=== PATIENT | male | born 1940 | race African-American/Black ===

== ENCOUNTER 2017-03-20 21:59 | Inpatient (IN) | payer MEDICARE, OTHER ==
[~2017-03-20] VITALS: Ht 177.8 cm; Wt 64.0 kg
[2017-03-20] MEDS ORDERED: SODIUM CHLORIDE 0.9% 1,000 ML IV ONE (22:33)
[2017-03-20 23:13] LABS: BASOPHILS % 0.3 % (0.0-2.0); EOSINOPHILS % 0.9 % (0.0-5.0); HEMATOCRIT. 38.2 % (42.0-52.0); HEMOGLOBIN. 12.7 g/dL (14.0-18.0); MEAN CORPUSCULAR HEMOGLOBIN 28.3 pg (28.0-32.0); MEAN CORPUSCULAR VOLUME 85.4 fL (80.0-94.0); MEAN PLATELET VOLUME 8.3 fl (7.4-10.4); NEUTROPHILS % 70.8 % (40.0-76.0); PLATELET 370 x1000/uL (130-400); RED BLOOD CELL COUNT 4.48 mill/uL (4.7-6.1); RED CELL DISTRIBUTION WIDTH 13.9 % (11.6-14.6)
[2017-03-20 23:19] LABS: INR 1.1; PROTHROMBIN TIME 11.8 sec
[2017-03-20 23:27] LABS: CARBON DIOXIDE 27 mEq/L (21-32); CHLORIDE 108 mEq/L (98-107); TROPONIN I 0.04 ng/mL (0.00-0.04)
[2017-03-21] MEDS ORDERED: ABIR250T PO (00:37)
[2017-03-21] MEDS ORDERED: LEVOFLOXACIN 750MG PREMIX 150 ML IV ONE (00:45)
[2017-03-21 01:11] LABS: CLARITY URINE CLEAR (CLEAR); COLOR URINE YELLOW (YELLOW); GLUCOSE URINE NEGATIVE (NEGATIVE); KETONES URINE NEGATIVE (NEGATIVE); LEUKOCYTE ESTERASE URINE NEGATIVE (NEGATIVE); NITRITE URINE NEGATIVE (NEGATIVE); OCCULT BLOOD URINE NEGATIVE (NEGATIVE); PH URINE 8.5 (4.5-8.0); PROTEIN URINE 2+ (NEGATIVE); SPECIFIC GRAVITY URINE 1.016 (1.005-1.030)
[2017-03-21 04:10] VITALS: BP 133/82
[2017-03-21 04:30] VITALS: BP 120/72
[2017-03-21 08:00] VITALS: BP 117/85
[2017-03-21 09:15] LABS: CREATINE KINASE MB FRACTION 2.2 ng/mL (0.5-3.6); TROPONIN I 0.05 ng/mL (0.00-0.04)
[2017-03-21] MEDS ORDERED: AMLO2.5T45 PO (09:16)
[2017-03-21] MEDS ORDERED: CARV6.2548 PO (09:16)
[2017-03-21] MEDS ORDERED: CHOL100026 PO (09:16)
[2017-03-21] MEDS ORDERED: NA PHOS,M-B/NA PHOS,DI-BA ENEMA 118ML PR PRN (11:30)
[2017-03-21] MEDS ORDERED: GUAIFENESIN 200MG/10ML SUGAR FREE UDC PO PRN (11:30)
[2017-03-21] MEDS ORDERED: HYDROCODONE/ACETAMINOPHEN 5/325MG TABLET PO PRN (11:30)
[2017-03-21] MEDS ORDERED: DIPHENHYDRAMINE 50MG/ML VIAL IV PRN (11:30)
[2017-03-21] MEDS ORDERED: DOCUSATE SODIUM 100MG CAPSULE PO PRN (11:30)
[2017-03-21] MEDS ORDERED: MAGNESIUM/ALUMINUM HYDROXIDE/SIMETHICONE 30ML UDC PO PRN (11:30)
[2017-03-21] MEDS ORDERED: ONDANSETRON HCL 4MG/2ML VIAL IV PRN (11:30)
[2017-03-21] MEDS ORDERED: IPRATROPIUM/ALBUTEROL 0.5-3(2.5)MG/3ML NEB INH PRN (11:30)
[2017-03-21] MEDS ORDERED: ACETAMINOPHEN 650MG SUPP PR PRN (11:30)
[2017-03-21] MEDS ORDERED: IBUPROFEN 200MG TABLET PO PRN (11:45)
[2017-03-21 12:00] VITALS: BP 137/79
[2017-03-21] MEDS: SODIUM CHLORIDE 0.9% INJ 3ML FLUSH IVF SCH ×2 (13:16→21:01)
[2017-03-21] MEDS: ENOXAPARIN 40MG/0.4ML SYR SUBCUT SCH (13:16)
[2017-03-21 15:00] LABS: BASOPHILS % 0.2 % (0.0-2.0); EOSINOPHILS % 0.5 % (0.0-5.0); HEMATOCRIT. 34.9 % (42.0-52.0); HEMOGLOBIN. 11.6 g/dL (14.0-18.0); LYMPHOCYTES % 18.6 % (20.0-50.0); MEAN CORPUSCULAR HEMOGLOBIN 28.3 pg (28.0-32.0); MEAN CORPUSCULAR VOLUME 85.2 fL (80.0-94.0); MEAN PLATELET VOLUME 7.7 fl (7.4-10.4); MONOCYTES % 10.8 % (2.0-8.0); NEUTROPHILS % 69.9 % (40.0-76.0); PLATELET 333 x1000/uL (130-400); RED BLOOD CELL COUNT 4.09 mill/uL (4.7-6.1); RED CELL DISTRIBUTION WIDTH 14.1 % (11.6-14.6)
[2017-03-21 15:28] LABS: CARBON DIOXIDE 25 mEq/L (21-32); CHLORIDE 109 mEq/L (98-107); CREATINE KINASE 131 IU/L (39-308); CREATINE KINASE MB FRACTION 2.1 ng/mL (0.5-3.6); TROPONIN I 0.04 ng/mL (0.00-0.04)
[2017-03-21 15:29] LABS: CARBON DIOXIDE 24 mEq/L (21-32); CHLORIDE 108 mEq/L (98-107); HDL CHOLESTEROL 41 mg/dL (40-59); LDL CHOLESTEROL 20 mg/dL (5-100); PHOSPHORUS 1.4 mg/dL (2.5-4.9)
[2017-03-21 15:48] LABS: FOLIC ACID (FOLATE) SERUM 12.5 ng/mL (>5.38)
[2017-03-21 16:00] VITALS: BP 115/68
[2017-03-21] MEDS: SODIUM CHLORIDE 0.9% 1,000 ML IV SCH (16:23)
[2017-03-21] MEDS: CEFEPIME 1,000 MG in DEXTROSE 5% WATER 50 ML IV SCH (17:57)
[2017-03-21 20:00] VITALS: BP 134/81
[2017-03-21] MEDS ORDERED: POTASSIUM CHLORIDE 20MEQ TABLET SR PO NR (21:10)
[2017-03-21] MEDS ORDERED: LEVOFLOXACIN 500MG PREMIX 100 ML IV SCH (23:00)
[2017-03-22] VITALS: BP 129/82
[2017-03-22] MEDS: IPRATROPIUM/ALBUTEROL 0.5-3(2.5)MG/3ML NEB HHN SCH ×6 (00:40→21:14)
[2017-03-22 04:00] VITALS: BP 133/77
[2017-03-22] MEDS: SODIUM CHLORIDE 0.9% 1,000 ML IV SCH (05:11)
[2017-03-22] MEDS: SODIUM CHLORIDE 0.9% INJ 3ML FLUSH IVF SCH ×3 (05:11→22:20)
[2017-03-22] MEDS: CEFEPIME 1,000 MG in DEXTROSE 5% WATER 50 ML IV SCH ×2 (05:11→18:49)
[2017-03-22 06:42] LABS: CARBON DIOXIDE 21 mEq/L (21-32); CHLORIDE 112 mEq/L (98-107); HDL CHOLESTEROL 36 mg/dL (40-59); LDL CHOLESTEROL 15 mg/dL (5-100)
[2017-03-22 06:48] LABS: BASOPHILS % 0.1 % (0.0-2.0); HEMATOCRIT. 37.3 % (42.0-52.0); HEMOGLOBIN. 12.1 g/dL (14.0-18.0); LYMPHOCYTES % 9.7 % (20.0-50.0); MEAN CORPUSCULAR VOLUME 86.4 fL (80.0-94.0); MEAN PLATELET VOLUME 8.3 fl (7.4-10.4); MONOCYTES % 11.2 % (2.0-8.0); PLATELET 315 x1000/uL (130-400); RED BLOOD CELL COUNT 4.32 mill/uL (4.7-6.1); RED CELL DISTRIBUTION WIDTH 14.2 % (11.6-14.6)
[2017-03-22 08:00] VITALS: BP 149/91
[2017-03-22 08:29] LABS: AMMONIA 23 uMol/L (<32)
[2017-03-22 12:00] VITALS: BP 129/92
[2017-03-22] MEDS: ENOXAPARIN 40MG/0.4ML SYR SUBCUT SCH (13:00)
[2017-03-22 16:00] VITALS: BP 138/93
[2017-03-22 20:00] VITALS: BP 125/77
[2017-03-22] MEDS: AZITHROMYCIN 500 MG in DEXT 5% WATER 250 ML IV SCH (20:25)
[2017-03-22] MEDS: ACETAMINOPHEN 325MG TABLET PO PRN (20:28)
[2017-03-23] VITALS: BP 117/76
[2017-03-23] MEDS: IPRATROPIUM/ALBUTEROL 0.5-3(2.5)MG/3ML NEB HHN SCH ×6 (00:26→20:50)
[2017-03-23 04:00] VITALS: BP 116/75
[2017-03-23] MEDS: CEFEPIME 1,000 MG in DEXTROSE 5% WATER 50 ML IV SCH ×2 (05:35→18:47)
[2017-03-23] MEDS: SODIUM CHLORIDE 0.9% INJ 3ML FLUSH IVF SCH ×3 (05:35→22:22)
[2017-03-23] MEDS: ACETAMINOPHEN 325MG TABLET PO PRN (06:38)
[2017-03-23 08:00] VITALS: BP 120/84
[2017-03-23 12:00] VITALS: BP 105/72
[2017-03-23] MEDS: ENOXAPARIN 40MG/0.4ML SYR SUBCUT SCH (13:00)
[2017-03-23 16:00] VITALS: BP 108/73
[2017-03-23 20:00] VITALS: BP 119/76
[2017-03-23] MEDS: AZITHROMYCIN 500 MG in DEXT 5% WATER 250 ML IV SCH (20:46)
[2017-03-23 21:58] LABS: CARBON DIOXIDE 26 mEq/L (21-32); CHLORIDE 109 mEq/L (98-107)
[2017-03-23 23:09] LABS: BASOPHILS % 0.2 % (0.0-2.0); HEMATOCRIT. 36.3 % (42.0-52.0); HEMOGLOBIN. 12.1 g/dL (14.0-18.0); LYMPHOCYTES % 12.3 % (20.0-50.0); MEAN CORPUSCULAR HEMOGLOBIN 28.8 pg (28.0-32.0); MEAN CORPUSCULAR VOLUME 86.2 fL (80.0-94.0); MONOCYTES % 6.6 % (2.0-8.0); NEUTROPHILS % 80.9 % (40.0-76.0); RED BLOOD CELL COUNT 4.22 mill/uL (4.7-6.1); RED CELL DISTRIBUTION WIDTH 14.4 % (11.6-14.6)
[2017-03-24] VITALS (7 sets, daily range): BP systolic 99–149; BP diastolic 55–95
[2017-03-24] MEDS: ACETAMINOPHEN 325MG TABLET PO PRN (00:21)
[2017-03-24] MEDS: IPRATROPIUM/ALBUTEROL 0.5-3(2.5)MG/3ML NEB HHN SCH ×6 (01:11→21:08)
[2017-03-24] MEDS: SODIUM CHLORIDE 0.9% INJ 3ML FLUSH IVF SCH ×3 (05:39→21:14)
[2017-03-24] MEDS: CEFEPIME 1,000 MG in DEXTROSE 5% WATER 50 ML IV SCH ×2 (05:39→17:32)
[2017-03-24] MEDS: ENOXAPARIN 40MG/0.4ML SYR SUBCUT SCH (13:00)
[2017-03-24 13:09] LABS: BASOPHILS % 0.1 % (0.0-2.0); EOSINOPHILS % 0.7 % (0.0-5.0); HEMOGLOBIN. 11.3 g/dL (14.0-18.0); LYMPHOCYTES % 11.9 % (20.0-50.0); MEAN CORPUSCULAR HEMOGLOBIN 28.4 pg (28.0-32.0); MEAN CORPUSCULAR VOLUME 85.6 fL (80.0-94.0); MEAN PLATELET VOLUME 8.2 fl (7.4-10.4); MONOCYTES % 6.9 % (2.0-8.0); NEUTROPHILS % 80.4 % (40.0-76.0); PLATELET 257 x1000/uL (130-400); RED BLOOD CELL COUNT 3.97 mill/uL (4.7-6.1); RED CELL DISTRIBUTION WIDTH 14.3 % (11.6-14.6)
[2017-03-24 13:22] LABS: CARBON DIOXIDE 27 mEq/L (21-32); CHLORIDE 109 mEq/L (98-107)
[2017-03-24] MEDS ORDERED: SODIUM CHLORIDE 10% FOR INH 15ML VIAL NEB INH NR (20:30)
[2017-03-24] MEDS: AZITHROMYCIN 500 MG in DEXT 5% WATER 250 ML IV SCH (21:14)
[2017-03-24] MEDS: ACETAMINOPHEN 650MG/20.3ML UDC GT PRN (23:11)
[2017-03-25] VITALS (10 sets, daily range): BP systolic 105–148; BP diastolic 65–106
[2017-03-25] MEDS: IPRATROPIUM/ALBUTEROL 0.5-3(2.5)MG/3ML NEB HHN SCH ×6 (00:58→20:02)
[2017-03-25] MEDS: SODIUM CHLORIDE 0.9% INJ 3ML FLUSH IVF SCH ×3 (05:59→21:04)
[2017-03-25] MEDS: CEFEPIME 1,000 MG in DEXTROSE 5% WATER 50 ML IV SCH ×2 (06:00→19:03)
[2017-03-25] MEDS: CLONIDINE 0.1MG TABLET PO PRN (11:41)
[2017-03-25] MEDS ORDERED: PRED2.5T4 PO (14:56)
[2017-03-25] MEDS ORDERED: DORZ10DR7 EACHEYE (14:56)
[2017-03-25] MEDS ORDERED: BRIM15DR2 EACHEYE (14:56)
[2017-03-25] MEDS: ENOXAPARIN 40MG/0.4ML SYR SUBCUT SCH (15:29)
[2017-03-25] MEDS ORDERED: MEDICATION NOT ON FORMULARY EA (Prednisone 1 TAB) PO SCH (17:00)
[2017-03-25] MEDS ORDERED: MEDICATION NOT ON FORMULARY EA (Brimonidine Tartrate (Alphagan P) 1 DROP) EACHEYE SCH (17:00)
[2017-03-25 17:23] LABS: BG BASE EXCESS -2.1 mmol/L (-2.0-2.0); BG CARBOXYHEMOGLOBIN 0.3 % (0.5-1.5); BG FRACTION INSPIRED OXYGEN 36; BG HCO3 ACT 19.5 mmol/L (22.0-26.0); BG OXYHEMOGLOBIN 85.7 % (94.0-97.0); BG PCO2 25.2 mmHg (35.0-45.0); BG PH 7.507 (7.350-7.450); BG PO2 47.9 mmHg (75.0-100.0); BG SAMPLE SITE RIGHT RADIAL; BG TOTAL HEMOGLOBIN 12.3 g/dL (12.0-18.0); BG VENT MODE NASAL CANNULA
[2017-03-25] MEDS ORDERED: HYDRALAZINE 20MG/ML VIAL IV SCH (18:00)
[2017-03-25] MEDS: PANTOPRAZOLE 40MG DR TABLET PO SCH (18:49)
[2017-03-25] MEDS: CARVEDILOL 6.25 MG TABLET PO SCH (18:50)
[2017-03-25] MEDS: AMLODIPINE 2.5MG TABLET PO SCH (18:50)
[2017-03-25 20:39] LABS: BASOPHILS % 0.1 % (0.0-2.0); EOSINOPHILS % 0.4 % (0.0-5.0); HEMATOCRIT. 34.3 % (42.0-52.0); HEMOGLOBIN. 11.2 g/dL (14.0-18.0); LYMPHOCYTES % 11.4 % (20.0-50.0); MEAN CORPUSCULAR HEMOGLOBIN 28.5 pg (28.0-32.0); MEAN CORPUSCULAR VOLUME 86.9 fL (80.0-94.0); MEAN PLATELET VOLUME 8.6 fl (7.4-10.4); NEUTROPHILS % 81.1 % (40.0-76.0); PLATELET 226 x1000/uL (130-400); RED BLOOD CELL COUNT 3.94 mill/uL (4.7-6.1); RED CELL DISTRIBUTION WIDTH 14.4 % (11.6-14.6)
[2017-03-25 20:51] LABS: CARBON DIOXIDE 21 mEq/L (21-32); CHLORIDE 111 mEq/L (98-107)
[2017-03-25] MEDS: AZITHROMYCIN 500 MG in DEXT 5% WATER 250 ML IV SCH (20:53)
[2017-03-25] MEDS: DORZOLAMIDE 2% OPHTH 10 ML BOTTLE EACHEYE SCH (20:54)
[2017-03-25] MEDS: PREDNISONE 5MG TABLET PO SCH (20:54)
[2017-03-25] MEDS: BRIMONIDINE 0.2% OPHTH DROPS 5ML BOTHEYE SCH (20:54)
[2017-03-25 22:13] LABS: BG BASE EXCESS -4.4 mmol/L (-2.0-2.0); BG DEOXYHEMOGLOBIN 10.3 % (0.0-5.0); BG FRACTION INSPIRED OXYGEN 100; BG HCO3 ACT 18.4 mmol/L (22.0-26.0); BG METHEMOGLOBIN 0.1 % (0.0-1.5); BG OXYGEN SATURATION 89.7 % (92.0-98.5); BG OXYHEMOGLOBIN 89.6 % (94.0-97.0); BG PCO2 27.6 mmHg (35.0-45.0); BG PH 7.441 (7.350-7.450); BG PO2 58.3 mmHg (75.0-100.0); BG SAMPLE SITE RIGHT RADIAL; BG VENT MODE MASK - NRB
[2017-03-26] VITALS (84 sets, daily range): BP systolic 70–153; BP diastolic 39–97
[2017-03-26] MEDS ORDERED: SODIUM CHLORIDE 0.9% 1,000 ML IV SCH (01:15)
[2017-03-26] MEDS ORDERED: NOREPINEPHRINE 8 MG in DEXT 5% WATER 492 ML IV PRN (01:15)
[2017-03-26 01:18] LABS: BG BASE EXCESS -5.6 mmol/L (-2.0-2.0); BG CARBOXYHEMOGLOBIN 0.3 % (0.5-1.5); BG DEOXYHEMOGLOBIN 0.5 % (0.0-5.0); BG FRACTION INSPIRED OXYGEN 100; BG HCO3 ACT 16.5 mmol/L (22.0-26.0); BG METHEMOGLOBIN 0.3 % (0.0-1.5); BG OXYGEN SATURATION 99.5 % (92.0-98.5); BG OXYHEMOGLOBIN 98.9 % (94.0-97.0); BG PCO2 23.7 mmHg (35.0-45.0); BG PH 7.461 (7.350-7.450); BG PO2 347.3 mmHg (75.0-100.0); BG SAMPLE SITE RIGHT RADIAL; BG TIDAL VOLUME(mL) 500 mL; BG TOTAL HEMOGLOBIN 12.2 g/dL (12.0-18.0); BG VENT MODE VENT - A/C; BG VENT RATE 12 set
[2017-03-26] MEDS: IPRATROPIUM/ALBUTEROL 0.5-3(2.5)MG/3ML NEB HHN SCH ×5 (04:17→20:32)
[2017-03-26] MEDS: CEFEPIME 1,000 MG in DEXTROSE 5% WATER 50 ML IV SCH ×2 (05:12→17:05)
[2017-03-26] MEDS: SODIUM CHLORIDE 0.9% INJ 3ML FLUSH IVF SCH ×3 (05:12→21:10)
[2017-03-26 06:30] LABS: HEMATOCRIT. 30.5 % (42.0-52.0); MEAN CORPUSCULAR HEMOGLOBIN 27.8 pg (28.0-32.0); MEAN CORPUSCULAR VOLUME 85.4 fL (80.0-94.0); MEAN PLATELET VOLUME 9.2 fl (7.4-10.4); PLATELET 222 x1000/uL (130-400); RED BLOOD CELL COUNT 3.57 mill/uL (4.7-6.1); RED CELL DISTRIBUTION WIDTH 14.3 % (11.6-14.6)
[2017-03-26 07:21] LABS: CARBON DIOXIDE 21 mEq/L (21-32); CHLORIDE 109 mEq/L (98-107)
[2017-03-26 08:18] LABS: BG BASE EXCESS -4.8 mmol/L (-2.0-2.0); BG CARBOXYHEMOGLOBIN 0.3 % (0.5-1.5); BG DEOXYHEMOGLOBIN 2.5 % (0.0-5.0); BG FRACTION INSPIRED OXYGEN 50; BG HCO3 ACT 16.9 mmol/L (22.0-26.0); BG METHEMOGLOBIN 0.3 % (0.0-1.5); BG OXYGEN SATURATION 97.5 % (92.0-98.5); BG OXYHEMOGLOBIN 96.9 % (94.0-97.0); BG PCO2 22.2 mmHg (35.0-45.0); BG PO2 93.9 mmHg (75.0-100.0); BG SAMPLE SITE RIGHT RADIAL; BG TIDAL VOLUME(mL) 500 mL; BG TOTAL HEMOGLOBIN 10.3 g/dL (12.0-18.0); BG VENT MODE VENT - A/C; BG VENT RATE 12 set
[2017-03-26] MEDS ORDERED: ABIRATERONE ACETATE 250 MG PO SCH (09:00)
[2017-03-26] MEDS: DORZOLAMIDE 2% OPHTH 10 ML BOTTLE EACHEYE SCH ×3 (09:24→17:04)
[2017-03-26] MEDS: PANTOPRAZOLE 40MG DR TABLET PO SCH (09:24)
[2017-03-26] MEDS: BRIMONIDINE 0.2% OPHTH DROPS 5ML BOTHEYE SCH ×3 (09:24→17:04)
[2017-03-26] MEDS: AMLODIPINE 2.5MG TABLET PO SCH (09:25)
[2017-03-26] MEDS: CARVEDILOL 6.25 MG TABLET PO SCH ×2 (09:25→17:05)
[2017-03-26] MEDS: PREDNISONE 5MG TABLET PO SCH (09:25)
[2017-03-26] MEDS: DEXT 5%/0.9% NACL 1,000 ML IV SCH (09:50)
[2017-03-26] MEDS ORDERED: ETOMIDATE 2MG/ML 10ML VIAL IV ONE (10:29)
[2017-03-26] MEDS ORDERED: SUCCINYLCHOLINE CHLORIDE 200MG/10ML VIAL IV ONE (10:29)
[2017-03-26 12:22] LABS: PLATELET ESTIMATE NORMAL
[2017-03-26] MEDS ORDERED: VANCOMYCIN 1500MG in DEXTROSE 5% WATER 250ML IV NR (13:00)
[2017-03-26] MEDS: ENOXAPARIN 40MG/0.4ML SYR SUBCUT SCH (13:00)
[2017-03-26] MEDS: MORPHINE SULFATE 4 MG/ML CPJ (NOT FOR IM USE) IV PRN ×2 (13:01→22:45)
[2017-03-26] MEDS: AZITHROMYCIN 500 MG in DEXT 5% WATER 250 ML IV SCH (20:17)
[2017-03-27] VITALS (63 sets, daily range): BP systolic 86–165; BP diastolic 45–90
[2017-03-27] MEDS: IPRATROPIUM/ALBUTEROL 0.5-3(2.5)MG/3ML NEB HHN SCH ×6 (00:25→20:35)
[2017-03-27] MEDS: DEXT 5%/0.9% NACL 1,000 ML IV SCH ×2 (02:25→18:41)
[2017-03-27] MEDS: MORPHINE SULFATE 4 MG/ML CPJ (NOT FOR IM USE) IV PRN ×2 (03:01→05:58)
[2017-03-27] MEDS: SODIUM CHLORIDE 0.9% INJ 3ML FLUSH IVF SCH ×3 (05:58→21:42)
[2017-03-27] MEDS: CEFEPIME 1,000 MG in DEXTROSE 5% WATER 50 ML IV SCH ×2 (06:04→17:39)
[2017-03-27 07:13] LABS: BASOPHILS % 0.3 % (0.0-2.0); EOSINOPHILS % 0.8 % (0.0-5.0); HEMATOCRIT. 29.1 % (42.0-52.0); HEMOGLOBIN. 9.3 g/dL (14.0-18.0); LYMPHOCYTES % 5.3 % (20.0-50.0); MEAN CORPUSCULAR HEMOGLOBIN 27.7 pg (28.0-32.0); MEAN CORPUSCULAR VOLUME 86.7 fL (80.0-94.0); MEAN PLATELET VOLUME 9.1 fl (7.4-10.4); MONOCYTES % 8.4 % (2.0-8.0); NEUTROPHILS % 85.2 % (40.0-76.0); PLATELET 174 x1000/uL (130-400); RED BLOOD CELL COUNT 3.36 mill/uL (4.7-6.1); RED CELL DISTRIBUTION WIDTH 14.6 % (11.6-14.6)
[2017-03-27 07:14] LABS: CHLORIDE 113 mEq/L (98-107)
[2017-03-27 07:19] LABS: CARBON DIOXIDE 22 mEq/L (21-32)
[2017-03-27 07:57] LABS: BG BASE EXCESS -3.4 mmol/L (-2.0-2.0); BG CARBOXYHEMOGLOBIN 0.3 % (0.5-1.5); BG DEOXYHEMOGLOBIN 1.9 % (0.0-5.0); BG FRACTION INSPIRED OXYGEN 50; BG HCO3 ACT 20.6 mmol/L (22.0-26.0); BG METHEMOGLOBIN 0.4 % (0.0-1.5); BG OXYGEN SATURATION 98.1 % (92.0-98.5); BG OXYHEMOGLOBIN 97.4 % (94.0-97.0); BG PCO2 33.1 mmHg (35.0-45.0); BG PH 7.411 (7.350-7.450); BG PIP 12 cmH2O; BG PO2 130.9 mmHg (75.0-100.0); BG SAMPLE SITE RIGHT RADIAL; BG TIDAL VOLUME(mL) 500 mL; BG TOTAL HEMOGLOBIN 10.2 g/dL (12.0-18.0); BG VENT MODE VENT - A/C; BG VENT RATE 8 set
[2017-03-27] MEDS: DORZOLAMIDE 2% OPHTH 10 ML BOTTLE EACHEYE SCH ×3 (08:29→17:38)
[2017-03-27] MEDS: AMLODIPINE 2.5MG TABLET PO SCH (08:29)
[2017-03-27] MEDS: PANTOPRAZOLE 40MG DR TABLET PO SCH (08:29)
[2017-03-27] MEDS: ACETAMINOPHEN 325MG TABLET PO PRN (08:29)
[2017-03-27] MEDS: CARVEDILOL 6.25 MG TABLET PO SCH ×2 (08:29→17:39)
[2017-03-27] MEDS: PREDNISONE 5MG TABLET PO SCH (08:29)
[2017-03-27] MEDS: BRIMONIDINE 0.2% OPHTH DROPS 5ML BOTHEYE SCH ×3 (08:30→17:38)
[2017-03-27 08:40] LABS: PHOSPHORUS 1.5 mg/dL (2.5-4.9)
[2017-03-27] MEDS ORDERED: VANCOMYCIN 750 MG PREMIX 150 ML IV SCH (09:00)
[2017-03-27] MEDS ORDERED: ENOXAPARIN 30MG/0.3ML SYR SUBCUT SCH (09:00)
[2017-03-27] MEDS: MORPHINE SULFATE 2 MG/ML CPJ (NOT FOR IM USE) IV PRN ×2 (10:29→22:35)
[2017-03-27] MEDS: PANTOPRAZOLE SODIUM 40 MG/VIAL IV SCH (10:45)
[2017-03-27] MEDS ORDERED: POTASSIUM PHOS,M-BASIC-D-BASIC 15 MMOL in DEXT 5% WATER 245 ML IV ONE (11:45)
[2017-03-27 11:49] LABS: GLUCOSE URINE NEGATIVE (NEGATIVE); KETONES URINE NEGATIVE (NEGATIVE); LEUKOCYTE ESTERASE URINE 1+ (NEGATIVE); NITRITE URINE NEGATIVE (NEGATIVE); OCCULT BLOOD URINE 3+ (NEGATIVE); PROTEIN URINE 2+ (NEGATIVE)
[2017-03-27 11:52] LABS: CLARITY URINE CLOUDY (CLEAR); COLOR URINE DARK YELLOW (YELLOW)
[2017-03-27] MEDS: METOCLOPRAMIDE HCL 10MG/2ML VIAL IV SCH ×2 (12:33→17:38)
[2017-03-27] MEDS ORDERED: POTASSIUM PHOS,M-BASIC-D-BASIC 30 MMOL in DEXT 5% WATER 500 ML IV NR (13:00)
[2017-03-27] MEDS ORDERED: VANCOMYCIN 1 G PREMIX 200 ML IV SCH (14:00)
[2017-03-27] MEDS ORDERED: VANCOMYCIN 1250MG in DEXTROSE 5% WATER 250ML IV SCH (14:00)
[2017-03-27] MEDS: METRONIDAZOLE 500MG TABLET PO SCH (20:19)
[2017-03-27] MEDS: AZITHROMYCIN 500 MG in DEXT 5% WATER 250 ML IV SCH (20:19)
[2017-03-27 20:52] LABS: PHOSPHORUS 2.6 mg/dL (2.5-4.9)
[2017-03-27] MEDS ORDERED: POTASSIUM CHLORIDE INJ 40 MEQ in DEXT 5% WATER 250 ML IV NR (23:00)
[2017-03-28] VITALS (30 sets, daily range): BP systolic 97–184; BP diastolic 51–103
[2017-03-28] MEDS: IPRATROPIUM/ALBUTEROL 0.5-3(2.5)MG/3ML NEB HHN SCH ×6 (00:32→20:46)
[2017-03-28] MEDS: METOCLOPRAMIDE HCL 10MG/2ML VIAL IV SCH (00:33)
[2017-03-28] MEDS: MORPHINE SULFATE 2 MG/ML CPJ (NOT FOR IM USE) IV PRN ×2 (04:37→16:20)
[2017-03-28 06:04] LABS: BASOPHILS % 0.4 % (0.0-2.0); EOSINOPHILS % 1.3 % (0.0-5.0); HEMATOCRIT. 30.1 % (42.0-52.0); HEMOGLOBIN. 9.6 g/dL (14.0-18.0); LYMPHOCYTES % 9.5 % (20.0-50.0); MEAN CORPUSCULAR HEMOGLOBIN 27.6 pg (28.0-32.0); MEAN CORPUSCULAR VOLUME 86.4 fL (80.0-94.0); MEAN PLATELET VOLUME 9.4 fl (7.4-10.4); MONOCYTES % 7.7 % (2.0-8.0); NEUTROPHILS % 81.1 % (40.0-76.0); PLATELET 157 x1000/uL (130-400); RED BLOOD CELL COUNT 3.48 mill/uL (4.7-6.1); RED CELL DISTRIBUTION WIDTH 14.3 % (11.6-14.6)
[2017-03-28] MEDS: SODIUM CHLORIDE 0.9% INJ 3ML FLUSH IVF SCH ×3 (06:06→22:04)
[2017-03-28] MEDS: CEFEPIME 1,000 MG in DEXTROSE 5% WATER 50 ML IV SCH ×2 (06:06→17:25)
[2017-03-28 06:13] LABS: CARBON DIOXIDE 22 mEq/L (21-32); CHLORIDE 111 mEq/L (98-107)
[2017-03-28] MEDS ORDERED: LANSOPRAZOLE 30MG DR CAPSULE GT SCH (07:50)
[2017-03-28 07:53] LABS: BG BASE EXCESS -3.7 mmol/L (-2.0-2.0); BG CARBOXYHEMOGLOBIN 0.3 % (0.5-1.5); BG DEOXYHEMOGLOBIN 2.3 % (0.0-5.0); BG FRACTION INSPIRED OXYGEN 40; BG HCO3 ACT 20.7 mmol/L (22.0-26.0); BG METHEMOGLOBIN 0.1 % (0.0-1.5); BG OXYGEN SATURATION 97.7 % (92.0-98.5); BG OXYHEMOGLOBIN 97.3 % (94.0-97.0); BG PCO2 34.8 mmHg (35.0-45.0); BG PH 7.393 (7.350-7.450); BG PO2 111.2 mmHg (75.0-100.0); BG SAMPLE SITE RIGHT RADIAL; BG TIDAL VOLUME(mL) 500 mL; BG TOTAL HEMOGLOBIN 9.5 g/dL (12.0-18.0); BG VENT MODE VENT - A/C; BG VENT RATE 8 set
[2017-03-28] MEDS: ENOXAPARIN 40MG/0.4ML SYR SUBCUT SCH (09:25)
[2017-03-28] MEDS: PANTOPRAZOLE SODIUM 40 MG/VIAL IV SCH (09:25)
[2017-03-28] MEDS: METRONIDAZOLE 500MG TABLET PO SCH ×2 (09:25→22:04)
[2017-03-28] MEDS: AMLODIPINE 2.5MG TABLET PO SCH (09:26)
[2017-03-28] MEDS: DORZOLAMIDE 2% OPHTH 10 ML BOTTLE EACHEYE SCH ×3 (09:26→17:26)
[2017-03-28] MEDS: CARVEDILOL 6.25 MG TABLET PO SCH ×2 (09:26→17:25)
[2017-03-28] MEDS: ACETAMINOPHEN 325MG TABLET PO PRN (09:26)
[2017-03-28] MEDS: BRIMONIDINE 0.2% OPHTH DROPS 5ML BOTHEYE SCH ×3 (09:27→17:26)
[2017-03-28] MEDS: PREDNISONE 5MG TABLET PO SCH (09:28)
[2017-03-28] MEDS ORDERED: DOCUSATE SODIUM 250MG CAPSULE PO PRN (10:15)
[2017-03-28] MEDS: DEXT 5%/0.9% NACL 1,000 ML IV SCH (13:03)
[2017-03-28] MEDS: ACETAMINOPHEN 650MG/20.3ML UDC GT PRN (17:26)
[2017-03-29] VITALS (25 sets, daily range): BP systolic 94–163; BP diastolic 41–83
[2017-03-29] MEDS: MORPHINE SULFATE 2 MG/ML CPJ (NOT FOR IM USE) IV PRN (00:35)
[2017-03-29] MEDS: IPRATROPIUM/ALBUTEROL 0.5-3(2.5)MG/3ML NEB HHN SCH ×6 (00:47→20:11)
[2017-03-29] MEDS: DEXT 5%/0.9% NACL 1,000 ML IV SCH (04:22)
[2017-03-29] MEDS: CEFEPIME 1,000 MG in DEXTROSE 5% WATER 50 ML IV SCH ×2 (05:04→17:37)
[2017-03-29] MEDS: SODIUM CHLORIDE 0.9% INJ 3ML FLUSH IVF SCH ×3 (05:04→21:02)
[2017-03-29 06:00] LABS: BASOPHILS % 0.2 % (0.0-2.0); EOSINOPHILS % 1.5 % (0.0-5.0); HEMATOCRIT. 28.4 % (42.0-52.0); HEMOGLOBIN. 9.2 g/dL (14.0-18.0); LYMPHOCYTES % 10.8 % (20.0-50.0); MEAN CORPUSCULAR HEMOGLOBIN 27.7 pg (28.0-32.0); MEAN CORPUSCULAR VOLUME 86.1 fL (80.0-94.0); MEAN PLATELET VOLUME 9.5 fl (7.4-10.4); MONOCYTES % 6.5 % (2.0-8.0); PLATELET 164 x1000/uL (130-400); RED BLOOD CELL COUNT 3.31 mill/uL (4.7-6.1); RED CELL DISTRIBUTION WIDTH 14.8 % (11.6-14.6)
[2017-03-29 06:58] LABS: CARBON DIOXIDE 23 mEq/L (21-32); CHLORIDE 112 mEq/L (98-107)
[2017-03-29] MEDS: ACETAMINOPHEN 650MG/20.3ML UDC GT PRN (08:40)
[2017-03-29] MEDS: PANTOPRAZOLE SODIUM 40 MG/VIAL IV SCH (08:40)
[2017-03-29] MEDS: DORZOLAMIDE 2% OPHTH 10 ML BOTTLE EACHEYE SCH ×3 (09:25→17:38)
[2017-03-29] MEDS: ENOXAPARIN 40MG/0.4ML SYR SUBCUT SCH (09:25)
[2017-03-29] MEDS: PREDNISONE 5MG TABLET PO SCH (09:25)
[2017-03-29] MEDS: METRONIDAZOLE 500MG TABLET PO SCH ×2 (09:25→20:03)
[2017-03-29] MEDS: AMLODIPINE 2.5MG TABLET PO SCH (09:25)
[2017-03-29] MEDS: BRIMONIDINE 0.2% OPHTH DROPS 5ML BOTHEYE SCH ×3 (09:25→17:38)
[2017-03-29] MEDS: CARVEDILOL 6.25 MG TABLET PO SCH ×2 (09:26→17:37)
[2017-03-29] MEDS: ACETYLCYSTEINE 100MG/ML 10% VIAL 4ML INH SCH ×2 (11:42→16:07)
[2017-03-29 13:35] LABS: BG BASE EXCESS -0.1 mmol/L (-2.0-2.0); BG CARBOXYHEMOGLOBIN 0.3 % (0.5-1.5); BG DEOXYHEMOGLOBIN 7.4 % (0.0-5.0); BG FRACTION INSPIRED OXYGEN 40; BG HCO3 ACT 23.3 mmol/L (22.0-26.0); BG METHEMOGLOBIN 0.2 % (0.0-1.5); BG OXYGEN SATURATION 92.6 % (92.0-98.5); BG OXYHEMOGLOBIN 92.1 % (94.0-97.0); BG PCO2 33.1 mmHg (35.0-45.0); BG PH 7.466 (7.350-7.450); BG PO2 56.3 mmHg (75.0-100.0); BG PRESSURE SUPPORT 8; BG SAMPLE SITE RIGHT RADIAL; BG TOTAL HEMOGLOBIN 8.6 g/dL (12.0-18.0); BG VENT MODE VENT - A/C
[2017-03-30] VITALS (29 sets, daily range): BP systolic 99–167; BP diastolic 45–77
[2017-03-30] MEDS: ACETYLCYSTEINE 100MG/ML 10% VIAL 4ML INH SCH ×4 (00:25→20:05)
[2017-03-30] MEDS: IPRATROPIUM/ALBUTEROL 0.5-3(2.5)MG/3ML NEB HHN SCH ×6 (00:27→20:05)
[2017-03-30] MEDS: MORPHINE SULFATE 2 MG/ML CPJ (NOT FOR IM USE) IV PRN ×2 (01:35→19:27)
[2017-03-30] MEDS: CEFEPIME 1,000 MG in DEXTROSE 5% WATER 50 ML IV SCH ×2 (05:01→17:43)
[2017-03-30] MEDS: SODIUM CHLORIDE 0.9% INJ 3ML FLUSH IVF SCH ×3 (05:01→21:40)
[2017-03-30 07:04] LABS: BG BASE EXCESS -1.7 mmol/L (-2.0-2.0); BG CARBOXYHEMOGLOBIN 0.3 % (0.5-1.5); BG DEOXYHEMOGLOBIN 4.2 % (0.0-5.0); BG HCO3 ACT 21.7 mmol/L (22.0-26.0); BG OXYGEN SATURATION 95.8 % (92.0-98.5); BG OXYHEMOGLOBIN 95.5 % (94.0-97.0); BG PCO2 31.7 mmHg (35.0-45.0); BG PH 7.454 (7.350-7.450); BG PO2 80.4 mmHg (75.0-100.0); BG SAMPLE SITE RIGHT RADIAL; BG TIDAL VOLUME(mL) 500 mL; BG TOTAL HEMOGLOBIN 9.2 g/dL (12.0-18.0); BG VENT MODE VENT - A/C; BG VENT RATE 8 set
[2017-03-30 07:23] LABS: BASOPHILS % 0.2 % (0.0-2.0); EOSINOPHILS % 1.2 % (0.0-5.0); HEMATOCRIT. 25.8 % (42.0-52.0); HEMOGLOBIN. 8.5 g/dL (14.0-18.0); LYMPHOCYTES % 15.7 % (20.0-50.0); MEAN CORPUSCULAR HEMOGLOBIN 27.8 pg (28.0-32.0); MEAN CORPUSCULAR VOLUME 84.6 fL (80.0-94.0); MEAN PLATELET VOLUME 8.5 fl (7.4-10.4); MONOCYTES % 9.2 % (2.0-8.0); NEUTROPHILS % 73.7 % (40.0-76.0); PLATELET 191 x1000/uL (130-400); RED BLOOD CELL COUNT 3.05 mill/uL (4.7-6.1); RED CELL DISTRIBUTION WIDTH 14.3 % (11.6-14.6)
[2017-03-30 07:28] LABS: CHLORIDE 113 mEq/L (98-107)
[2017-03-30 07:33] LABS: CARBON DIOXIDE 26 mEq/L (21-32)
[2017-03-30] MEDS: PANTOPRAZOLE SODIUM 40 MG/VIAL IV SCH (08:20)
[2017-03-30] MEDS: PREDNISONE 5MG TABLET PO SCH (08:21)
[2017-03-30] MEDS: BRIMONIDINE 0.2% OPHTH DROPS 5ML BOTHEYE SCH ×3 (08:21→17:39)
[2017-03-30] MEDS: METRONIDAZOLE 500MG TABLET PO SCH ×2 (08:21→20:33)
[2017-03-30] MEDS: AMLODIPINE 2.5MG TABLET PO SCH (08:21)
[2017-03-30] MEDS: DORZOLAMIDE 2% OPHTH 10 ML BOTTLE EACHEYE SCH ×3 (08:21→17:39)
[2017-03-30] MEDS: CARVEDILOL 6.25 MG TABLET PO SCH ×2 (08:22→16:28)
[2017-03-30 09:27] LABS: PHOSPHORUS 0.9 mg/dL (2.5-4.9)
[2017-03-30] MEDS ORDERED: POTASSIUM CHLORIDE 20MEQ/PACKET PO SCH (10:00)
[2017-03-30] MEDS ORDERED: MAGNESIUM 2 G PREMIX 50 ML IV SCH (11:00)
[2017-03-30] MEDS ORDERED: POTASSIUM PHOS,M-BASIC-D-BASIC 30 MMOL in DEXT 5% WATER 500 ML IV SCH (11:00)
[2017-03-30 12:11] LABS: BG BASE EXCESS -2.5 mmol/L (-2.0-2.0); BG CARBOXYHEMOGLOBIN 0.3 % (0.5-1.5); BG CPAP (cmH2O) 0 cm(H2O); BG DEOXYHEMOGLOBIN 2.7 % (0.0-5.0); BG HCO3 ACT 20.4 mmol/L (22.0-26.0); BG METHEMOGLOBIN 0.3 % (0.0-1.5); BG OXYGEN SATURATION 97.3 % (92.0-98.5); BG OXYHEMOGLOBIN 96.7 % (94.0-97.0); BG PCO2 29.2 mmHg (35.0-45.0); BG PH 7.463 (7.350-7.450); BG SAMPLE SITE RIGHT BRACHIAL; BG TOTAL HEMOGLOBIN 10.1 g/dL (12.0-18.0); BG VENT MODE VENT - CPAP
[2017-03-30] MEDS: ACETAMINOPHEN 325MG TABLET PO PRN (13:01)
[2017-03-31] VITALS (35 sets, daily range): BP systolic 101–176; BP diastolic 46–102
[2017-03-31] MEDS: MORPHINE SULFATE 2 MG/ML CPJ (NOT FOR IM USE) IV PRN ×5 (00:06→20:50)
[2017-03-31] MEDS: IPRATROPIUM/ALBUTEROL 0.5-3(2.5)MG/3ML NEB HHN SCH ×6 (00:11→20:18)
[2017-03-31] MEDS: ACETYLCYSTEINE 100MG/ML 10% VIAL 4ML INH SCH ×6 (00:12→20:18)
[2017-03-31 04:46] LABS: BASOPHILS % 0.4 % (0.0-2.0); HEMATOCRIT. 29.7 % (42.0-52.0); HEMOGLOBIN. 9.7 g/dL (14.0-18.0); MEAN CORPUSCULAR HEMOGLOBIN 27.8 pg (28.0-32.0); MEAN CORPUSCULAR VOLUME 85.6 fL (80.0-94.0); MEAN PLATELET VOLUME 9.2 fl (7.4-10.4); MONOCYTES % 10.1 % (2.0-8.0); NEUTROPHILS % 70.5 % (40.0-76.0); PLATELET 176 x1000/uL (130-400); RED BLOOD CELL COUNT 3.47 mill/uL (4.7-6.1); RED CELL DISTRIBUTION WIDTH 14.5 % (11.6-14.6)
[2017-03-31 05:06] LABS: CARBON DIOXIDE 26 mEq/L (21-32); CHLORIDE 111 mEq/L (98-107); PHOSPHORUS 1.4 mg/dL (2.5-4.9)
[2017-03-31] MEDS: CEFEPIME 1,000 MG in DEXTROSE 5% WATER 50 ML IV SCH ×2 (05:31→18:12)
[2017-03-31] MEDS: SODIUM CHLORIDE 0.9% INJ 3ML FLUSH IVF SCH ×3 (05:32→21:47)
[2017-03-31] MEDS: ACETAMINOPHEN 650MG/20.3ML UDC GT PRN ×2 (05:40→20:56)
[2017-03-31] MEDS: AMLODIPINE 2.5MG TABLET PO SCH (08:30)
[2017-03-31] MEDS: PREDNISONE 5MG TABLET PO SCH (08:30)
[2017-03-31] MEDS: PANTOPRAZOLE SODIUM 40 MG/VIAL IV SCH (08:30)
[2017-03-31] MEDS: METRONIDAZOLE 500MG TABLET PO SCH ×2 (08:30→20:49)
[2017-03-31] MEDS: BRIMONIDINE 0.2% OPHTH DROPS 5ML BOTHEYE SCH ×3 (08:31→18:13)
[2017-03-31] MEDS: DORZOLAMIDE 2% OPHTH 10 ML BOTTLE EACHEYE SCH ×3 (08:31→18:12)
[2017-03-31] MEDS: POTASSIUM-SODIUM PHOSPHATE POWDER PACKET PO SCH ×2 (10:28→18:12)
[2017-03-31] MEDS ORDERED: POTASSIUM PHOS,M-BASIC-D-BASIC 20 MMOL in DEXT 5% WATER 243.3333 ML IV ONE (11:00)
[2017-04-01] VITALS (48 sets, daily range): BP systolic 125–211; BP diastolic 53–110
[2017-04-01] MEDS: MORPHINE SULFATE 2 MG/ML CPJ (NOT FOR IM USE) IV PRN ×3 (00:15→23:43)
[2017-04-01] MEDS: ACETYLCYSTEINE 100MG/ML 10% VIAL 4ML INH SCH ×7 (00:38→23:43)
[2017-04-01] MEDS: IPRATROPIUM/ALBUTEROL 0.5-3(2.5)MG/3ML NEB HHN SCH ×7 (00:38→23:52)
[2017-04-01] MEDS: SODIUM CHLORIDE 0.9% INJ 3ML FLUSH IVF SCH ×3 (05:23→23:43)
[2017-04-01] MEDS: CEFEPIME 1,000 MG in DEXTROSE 5% WATER 50 ML IV SCH ×2 (05:23→17:06)
[2017-04-01] MEDS: METRONIDAZOLE 500MG TABLET PO SCH ×2 (08:27→20:41)
[2017-04-01] MEDS: DORZOLAMIDE 2% OPHTH 10 ML BOTTLE EACHEYE SCH ×3 (08:27→17:06)
[2017-04-01] MEDS: BRIMONIDINE 0.2% OPHTH DROPS 5ML BOTHEYE SCH ×3 (08:27→17:06)
[2017-04-01] MEDS: PANTOPRAZOLE SODIUM 40 MG/VIAL IV SCH (08:27)
[2017-04-01] MEDS: AMLODIPINE 2.5MG TABLET PO SCH (08:27)
[2017-04-01] MEDS: PREDNISONE 5MG TABLET PO SCH (08:27)
[2017-04-01] MEDS: POTASSIUM-SODIUM PHOSPHATE POWDER PACKET PO SCH ×2 (08:28→17:06)
[2017-04-01 11:21] LABS: BASOPHILS % 0.2 % (0.0-2.0); EOSINOPHILS % 1.1 % (0.0-5.0); LYMPHOCYTES % 10.1 % (20.0-50.0); MEAN CORPUSCULAR HEMOGLOBIN 27.4 pg (28.0-32.0); MEAN CORPUSCULAR VOLUME 84.9 fL (80.0-94.0); MEAN PLATELET VOLUME 8.7 fl (7.4-10.4); NEUTROPHILS % 82.6 % (40.0-76.0); PLATELET 200 x1000/uL (130-400); RED BLOOD CELL COUNT 2.73 mill/uL (4.7-6.1); RED CELL DISTRIBUTION WIDTH 14.9 % (11.6-14.6)
[2017-04-01 11:33] LABS: HEMATOCRIT. 23.2 % (42.0-52.0); HEMOGLOBIN. 7.5 g/dL (14.0-18.0)
[2017-04-01 11:46] LABS: CARBON DIOXIDE 28 mEq/L (21-32); CHLORIDE 110 mEq/L (98-107)
[2017-04-01 21:36] LABS: HEMATOCRIT 28.5 % (42.0-52.0); HEMOGLOBIN 9.5 g/dL (14.0-18.0)
[2017-04-01] MEDS: CLONIDINE 0.1MG TABLET PO PRN (22:27)
[2017-04-02] VITALS (42 sets, daily range): BP systolic 85–193; BP diastolic 48–110
[2017-04-02] MEDS: IPRATROPIUM/ALBUTEROL 0.5-3(2.5)MG/3ML NEB HHN SCH ×5 (03:08→20:09)
[2017-04-02] MEDS: ACETYLCYSTEINE 100MG/ML 10% VIAL 4ML INH SCH ×5 (03:09→20:08)
[2017-04-02] MEDS: CLONIDINE 0.1MG TABLET PO PRN (06:14)
[2017-04-02] MEDS: CEFEPIME 1,000 MG in DEXTROSE 5% WATER 50 ML IV SCH ×2 (06:14→18:00)
[2017-04-02] MEDS: SODIUM CHLORIDE 0.9% INJ 3ML FLUSH IVF SCH ×3 (06:26→21:12)
[2017-04-02 07:25] LABS: BG BASE EXCESS 3.4 mmol/L (-2.0-2.0); BG CARBOXYHEMOGLOBIN 0.2 % (0.5-1.5); BG DEOXYHEMOGLOBIN 4.3 % (0.0-5.0); BG HCO3 ACT 26.6 mmol/L (22.0-26.0); BG METHEMOGLOBIN 0.4 % (0.0-1.5); BG OXYGEN SATURATION 95.7 % (92.0-98.5); BG OXYHEMOGLOBIN 95.1 % (94.0-97.0); BG PCO2 34.9 mmHg (35.0-45.0); BG PO2 76.7 mmHg (75.0-100.0); BG SAMPLE SITE RIGHT BRACHIAL; BG TIDAL VOLUME(mL) 500 mL; BG TOTAL HEMOGLOBIN 8.9 g/dL (12.0-18.0); BG VENT MODE VENT - A/C; BG VENT RATE 8 set
[2017-04-02] MEDS: PREDNISONE 5MG TABLET PO SCH (08:26)
[2017-04-02] MEDS: PANTOPRAZOLE SODIUM 40 MG/VIAL IV SCH (08:26)
[2017-04-02] MEDS: POTASSIUM-SODIUM PHOSPHATE POWDER PACKET PO SCH ×2 (08:26→17:12)
[2017-04-02] MEDS: METRONIDAZOLE 500MG TABLET PO SCH ×2 (08:26→21:12)
[2017-04-02] MEDS: BRIMONIDINE 0.2% OPHTH DROPS 5ML BOTHEYE SCH ×3 (08:27→17:11)
[2017-04-02] MEDS: DORZOLAMIDE 2% OPHTH 10 ML BOTTLE EACHEYE SCH ×3 (08:27→17:11)
[2017-04-02] MEDS: AMLODIPINE 2.5MG TABLET PO SCH (08:27)
[2017-04-02 16:05] LABS: BASOPHILS % 0.3 % (0.0-2.0); EOSINOPHILS % 0.4 % (0.0-5.0); HEMATOCRIT. 26.7 % (42.0-52.0); HEMOGLOBIN. 8.7 g/dL (14.0-18.0); LYMPHOCYTES % 11.5 % (20.0-50.0); MEAN CORPUSCULAR HEMOGLOBIN 27.9 pg (28.0-32.0); MEAN PLATELET VOLUME 8.9 fl (7.4-10.4); MONOCYTES % 7.8 % (2.0-8.0); PLATELET 212 x1000/uL (130-400); RED BLOOD CELL COUNT 3.13 mill/uL (4.7-6.1); RED CELL DISTRIBUTION WIDTH 14.5 % (11.6-14.6)
[2017-04-02 16:12] LABS: CARBON DIOXIDE 27 mEq/L (21-32); CHLORIDE 111 mEq/L (98-107)
[2017-04-02] MEDS: MORPHINE SULFATE 2 MG/ML CPJ (NOT FOR IM USE) IV PRN ×2 (17:22→22:46)
[2017-04-02] MEDS ORDERED: MAGNESIUM 2 G PREMIX 50 ML IV NR (18:30)
[2017-04-03] VITALS (27 sets, daily range): BP systolic 75–131; BP diastolic 47–78
[2017-04-03] MEDS: IPRATROPIUM/ALBUTEROL 0.5-3(2.5)MG/3ML NEB HHN SCH ×7 (00:24→23:49)
[2017-04-03] MEDS: ACETYLCYSTEINE 100MG/ML 10% VIAL 4ML INH SCH ×4 (00:25→12:39)
[2017-04-03] MEDS: CEFEPIME 1,000 MG in DEXTROSE 5% WATER 50 ML IV SCH ×2 (05:40→17:30)
[2017-04-03] MEDS: SODIUM CHLORIDE 0.9% INJ 3ML FLUSH IVF SCH ×3 (05:40→21:38)
[2017-04-03] MEDS: MORPHINE SULFATE 2 MG/ML CPJ (NOT FOR IM USE) IV PRN ×3 (05:41→21:38)
[2017-04-03 08:02] LABS: BG BASE EXCESS 2.3 mmol/L (-2.0-2.0); BG CARBOXYHEMOGLOBIN 0.1 % (0.5-1.5); BG DEOXYHEMOGLOBIN 3.2 % (0.0-5.0); BG FRACTION INSPIRED OXYGEN 30; BG HCO3 ACT 26.2 mmol/L (22.0-26.0); BG METHEMOGLOBIN 0.4 % (0.0-1.5); BG OXYGEN SATURATION 96.8 % (92.0-98.5); BG OXYHEMOGLOBIN 96.3 % (94.0-97.0); BG PCO2 37.8 mmHg (35.0-45.0); BG PH 7.459 (7.350-7.450); BG PO2 90.4 mmHg (75.0-100.0); BG SAMPLE SITE RIGHT RADIAL; BG TIDAL VOLUME(mL) 500 mL; BG TOTAL HEMOGLOBIN 9.9 g/dL (12.0-18.0); BG VENT MODE VENT - A/C; BG VENT RATE 8 set
[2017-04-03] MEDS: POTASSIUM-SODIUM PHOSPHATE POWDER PACKET PO SCH ×2 (08:20→17:30)
[2017-04-03] MEDS: PREDNISONE 5MG TABLET PO SCH (08:20)
[2017-04-03] MEDS: AMLODIPINE 2.5MG TABLET PO SCH (08:20)
[2017-04-03] MEDS: METRONIDAZOLE 500MG TABLET PO SCH ×2 (08:20→21:38)
[2017-04-03] MEDS: PANTOPRAZOLE SODIUM 40 MG/VIAL IV SCH (08:20)
[2017-04-03] MEDS: DORZOLAMIDE 2% OPHTH 10 ML BOTTLE EACHEYE SCH ×3 (08:21→17:30)
[2017-04-03] MEDS: BRIMONIDINE 0.2% OPHTH DROPS 5ML BOTHEYE SCH ×3 (08:21→17:30)
[2017-04-03 09:35] LABS: BASOPHILS % 0.5 % (0.0-2.0); EOSINOPHILS % 0.7 % (0.0-5.0); HEMATOCRIT. 28.4 % (42.0-52.0); HEMOGLOBIN. 9.2 g/dL (14.0-18.0); LYMPHOCYTES % 16.8 % (20.0-50.0); MEAN CORPUSCULAR VOLUME 86.5 fL (80.0-94.0); MEAN PLATELET VOLUME 8.6 fl (7.4-10.4); PLATELET 239 x1000/uL (130-400); RED BLOOD CELL COUNT 3.29 mill/uL (4.7-6.1)
[2017-04-03 09:41] LABS: CARBON DIOXIDE 28 mEq/L (21-32); CHLORIDE 110 mEq/L (98-107); PHOSPHORUS 2.1 mg/dL (2.5-4.9)
[2017-04-04] VITALS (18 sets, daily range): BP systolic 97–147; BP diastolic 55–94
[2017-04-04] MEDS: IPRATROPIUM/ALBUTEROL 0.5-3(2.5)MG/3ML NEB HHN SCH ×3 (04:14→21:08)
[2017-04-04] MEDS: SODIUM CHLORIDE 0.9% INJ 3ML FLUSH IVF SCH ×2 (05:03→22:34)
[2017-04-04] MEDS: CEFEPIME 1,000 MG in DEXTROSE 5% WATER 50 ML IV SCH (05:03)
[2017-04-04] MEDS: MORPHINE SULFATE 2 MG/ML CPJ (NOT FOR IM USE) IV PRN (06:50)
[2017-04-04] MEDS: PREDNISONE 5MG TABLET PO SCH (08:02)
[2017-04-04] MEDS: DORZOLAMIDE 2% OPHTH 10 ML BOTTLE EACHEYE SCH (08:02)
[2017-04-04] MEDS: POTASSIUM-SODIUM PHOSPHATE POWDER PACKET PO SCH (08:02)
[2017-04-04] MEDS: BRIMONIDINE 0.2% OPHTH DROPS 5ML BOTHEYE SCH (08:02)
[2017-04-04] MEDS: METRONIDAZOLE 500MG TABLET PO SCH (08:02)
[2017-04-04] MEDS: AMLODIPINE 2.5MG TABLET PO SCH (08:02)
[2017-04-04] MEDS ORDERED: LORAZEPAM 2MG/ML CPJ IV PRN ×2 (11:30→22:45)
[2017-04-04] MEDS: MORPHINE SULFATE 100 MG in DEXT 5% WATER 90 ML IV PRN ×3 (11:52→20:55)
[2017-04-05] MEDS: MORPHINE SULFATE 100 MG in DEXT 5% WATER 90 ML IV PRN ×6 (00:18→23:41)
[2017-04-05] MEDS: IPRATROPIUM/ALBUTEROL 0.5-3(2.5)MG/3ML NEB HHN SCH ×4 (01:25→12:57)
[2017-04-05 04:00] VITALS: BP 93/58
[2017-04-05] MEDS: SODIUM CHLORIDE 0.9% INJ 3ML FLUSH IVF SCH ×2 (06:00→22:28)
[2017-04-05 08:00] VITALS: BP 93/51
[2017-04-05] MEDS: BRIMONIDINE 0.2% OPHTH DROPS 5ML BOTHEYE SCH ×2 (09:00→13:00)
[2017-04-05] MEDS: AMLODIPINE 2.5MG TABLET PO SCH (09:00)
[2017-04-05] MEDS: DORZOLAMIDE 2% OPHTH 10 ML BOTTLE EACHEYE SCH ×2 (09:00→13:00)
[2017-04-05] MEDS: POTASSIUM-SODIUM PHOSPHATE POWDER PACKET PO SCH (09:00)
[2017-04-05] MEDS: PREDNISONE 5MG TABLET PO SCH (09:00)
[2017-04-05 12:00] VITALS: BP 98/55
[2017-04-05 16:00] VITALS: BP 93/58
[2017-04-05 20:00] VITALS: BP 82/48
[2017-04-06] VITALS: BP 76/41
[2017-04-06 03:13] VITALS: BP 62/32
[2017-04-06] MEDS: MORPHINE SULFATE 100 MG in DEXT 5% WATER 90 ML IV PRN (03:13)
== END 2017-04-06 04:20 | disposition expired | DRG 870 ==
LOC: ER 22:53 → 5WST 03-21 02:12 → EDBEDREQSVC 03-21 02:17 → EDBEDREQ 03-21 02:17 → ENRESERV 03-21 02:34 → 5EST 03-25 13:35 → CVICU 03-25 23:50 → 8WST 04-04 18:24 → 6EST 04-04 23:45
PROVIDERS: ADMIT Family Medicine; ATTEND Family Medicine
PROC: 0DH67UZ Insertion of Feeding Device into Stomach, Via Natural or Artificial Opening (ICD-10-PCS; principal; 2017-03-25)
PROC: 5A1955Z Respiratory Ventilation, Greater than 96 Consecutive Hours (ICD-10-PCS; 2017-03-26)
PROC: 02HV33Z Insertion of Infusion Device into Superior Vena Cava, Percutaneous Approach (ICD-10-PCS; 2017-03-26)
PROC: 0BH17EZ Insertion of Endotracheal Airway into Trachea, Via Natural or Artificial Opening (ICD-10-PCS; 2017-03-26)
PROC: 30233N1 Transfusion of Nonautologous Red Blood Cells into Peripheral Vein, Percutaneous Approach (ICD-10-PCS; 2017-04-01)
DX: A41.9 Sepsis, unspecified organism (principal); J69.0 Pneumonitis due to inhalation of food and vomit; E43 Unspecified severe protein-calorie malnutrition; G93.40 Encephalopathy, unspecified; J96.01 Acute respiratory failure with hypoxia; N17.0 Acute kidney failure with tubular necrosis; C79.51 Secondary malignant neoplasm of bone; S22.39XA Fracture of one rib, unspecified side, initial encounter for closed fracture; B19.20 Unspecified viral hepatitis C without hepatic coma; C61 Malignant neoplasm of prostate; E83.39 Other disorders of phosphorus metabolism; E87.6 Hypokalemia; F03.90 Unspecified dementia, unspecified severity, without behavioral disturbance, psychotic disturbance, mood disturbance, and anxiety; I10 Essential (primary) hypertension; J44.9 Chronic obstructive pulmonary disease, unspecified; R13.10 Dysphagia, unspecified; R62.7 Adult failure to thrive; Z51.5 Encounter for palliative care; Z66 Do not resuscitate; R41.89 Other symptoms and signs involving cognitive functions and awareness; Z96.649 Presence of unspecified artificial hip joint; Z87.891 Personal history of nicotine dependence; Z91.81 History of falling; Z68.20 Body mass index [BMI] 20.0-20.9, adult; I46.9 Cardiac arrest, cause unspecified
CPT/HCPCS: 31500; 36415; 36569; 36600; 70450; 70551; 71010; 71250; 72141; 72146; 72148; 74000; 76937; 80048; 80053; 80061; 80202; 81001; 82140; 82330; 82375; 82550; 82553; 82607; 82746; 82805; 82962; 83036; 83605; 83735; 83880; 84100; 84132; 84153; 84443; 84484; 85014; 85018; 85025; 85610; 86850; 86900; 86920; 87040; 87070; 87086; 92610; 93005; 93970; 94002; 94003; 94640; 96365; 97163; 97167; 97530; 99285; A6261; C1725; C1893; C9113; J0330; J0456; J0692; J1200; J1650; J1956; J2060; J2270; J2405; J2765; J3370; J3475; J3480; J3490; J7030; J7040; J7042; J7050; J7060; J7131; J7512; J7608; J7620; P9016; A4315